=== PATIENT | male | born 1990 | race Caucasian/White ===

== ENCOUNTER 2022-03-01 10:05 | Emergency (ER) | payer OTHER ==
[2022-03-01] MEDS ORDERED: KETOROLAC 30 MG/ML INJ ONE ×2 (10:22→13:17)
[2022-03-01] MEDS ORDERED: ONDANSETRON 4 MG/2 ML VIAL ONE (10:22)
[2022-03-01] MEDS ORDERED: NA CHLORIDE 0.9% 1,000 ML ONE ×2 (10:22→11:24)
[2022-03-01 10:44] LABS: Absolute Lymphocytes (CBC) 1.2 K/uL (0.7-4.9); Hematocrit 47.3 % (39.6-49.0); Lymphocytes % 18.9 % (15.3-44.8); MCV 91.5 fL (80-100); MPV 9.3 fL (7.6-11.3); RBC Red Blood Cell Count 5.17 M/uL (4.33-5.43)
--- NOTE | 2022-03-01 10:52 | RAD REPORT ---
EXAM DESCRIPTION: CT - Stone Protocol - 03/01/2022 10:41 am CLINICAL HISTORY: Flank pain. flank pain COMPARISON: CT-STONE PROTOCOL dated 11/14/2010 TECHNIQUE: Axial images were obtained without oral or IV contrast. Lack of contrast limits solid org an and vascular assessment. The [id number] spans the entirety of the system partially obscuring uppermost abdomen and lung bases. Coronal reformatted images were obtained and reviewed. All CT scans are performed using dose optimization technique as appropriate and may include automated exposure control or mA/KV adjustment according to patient size. FINDINGS: The lower lung hicks are clear. Imaged portions of the liver and spleen show no suspicious findings on non-contrast imaging. The panc reas and adrenal glands are normal. No pathologic lymphadenopathy in the abdomen or pelvis. 2 mm stone is present mid right ureter resulting in mild right hydronephrosis. No left-sided stone or hydronephrosis seen. No bowel obstruction, free air, free fluid or abscess. Normal appendix noted. No significant bony abnormality. IMPRESSION: 2 mm stone is present mid right ureter resulting in mild right hydronephrosis.
[2022-03-01 11:05] LABS: Albumin 4.6 g/dL (3.4-5.0); Bilirubin Total 0.8 mg/dL (0.2-1.0); Potassium 4.2 mmol/L (3.5-5.1); Protein, Total 8.8 g/dL (6.4-8.2)
[2022-03-01] MEDS ORDERED: TAMSULOSIN 0.4 MG SR CAP ONE (11:24)
[2022-03-01 12:31] LABS: Blood Morphology Comment NOT SEEN (NOT SEEN); Platelet Estimate ADEQ; White Blood Cell Scan OK (OK)
[2022-03-01 12:32] LABS: Urine Blood 3+ (Negative); Urine Glucose Negative (Negative); Urine Protein Negative (Negative); Urine Specific Gravity 1.015 (1.005-1.030)
--- NOTE | 2022-03-01 13:37 | ER ---
Nurse's Notes [facility] Name: lBair Hernandez Age: 31 yrs Sex: Male : 1990 Arrival Date: 03/01/2022 Time: 10:06 Bed 11 Private MD: Diagnosis: Calculus of kidney with calculus of ureter Presentation: 03/01 10:12 Chief complaint: Patient states: Right flank pain since 0330 this morning, hx of kidney jl7 stones. Coronavirus screen: Vaccine status: Patient reports receiving the 2nd dose of the covid vaccine. At this time, the client does not indicate any symptoms associated with coronavirus-19. Ebola Screen: No symptoms or risks identified at this time. Initial Sepsis Screen: Does the patient meet any 2 criteria? No. Patient's initial sepsis screen is negative. Does the patient have a suspected source of infection? No. Patient's initial sepsis screen is negative. Risk Assessment: Do you want to hurt yourself or someone else? Patient reports no desire to harm self or others. Onset of symptoms was March 01, 2022 at 03:30. 10:12 Method Of Arrival: Law Enforcement: [place] [employer] jl7 10:12 Acuity: NATALIYA 3 jl7 Triage Assessment: 10:14 General: Appears in no apparent distress. uncomfortable, Behavior is cooperative, jl7 anxious. Pain: Complains of pain in right flank Pain currently is 9 out of 10 on a pain scale. Neuro: Level of Consciousness is awake, alert, obeys commands, Oriented to person, place, time, situation. Cardiovascular: Patient's skin is warm and dry. Respiratory: Airway is patent Respiratory effort is even, unlabored, Respiratory pattern is regular, symmetrical. : Reports pain in right flank(s). Derm: Skin is pink, warm \T\ dry. Historical: - Allergies: 10:14 No Known Allergies; jl7 - Home Meds: 10:14 ProAir HFA inhalation [Active]; jl7 - PMHx: 10:14 Asthma; kidney stones; jl7 - PSHx: 10:14 None; jl7 - Immunization history:: Client reports receiving the 2nd dose of the Covid vaccine. - Social history:: Smoking status: Patient denies any tobacco usage or history of. Screenin:34 [facility] ED Fall Risk Assessment (Adult) History of falling in the last 3 months, jl7 including since admission No falls in past 3 months (0 pts) Confusion or Disorientation No (0 pts) Intoxicated or Sedated No (0 pts) Impaired Gait No (0 pts) Mobility Assist Device Used No (0 pt) Altered Elimination No (0 pt) Score/Fall Risk Level 0 - 2 = Low Risk. Abuse screen: Denies threats or abuse. Denies injuries from another. Nutritional screening: No deficits noted. Tuberculosis screening: No symptoms or risk factors identified. Assessment: 12:21 General: Appears in no apparent distress. Behavior is cooperative. Pain: Complains of em6 pain in right lower quadrant and abdomen and back and right flank Pain currently is 5 out of 10 on a pain scale. Quality of pain is described as sharp. Neuro: Level of Consciousness is awake, alert, obeys commands, Oriented to person, place, time, situation. Cardiovascular: Patient's skin is warm and dry. Respiratory: Airway is patent Respiratory effort is even, unlabored, Respiratory pattern is regular, symmetrical. GI: Abdomen is non-distended, Bowel sounds present X 4 quads. Abd is soft and non tender X 4 quads. : No signs and/or symptoms were reported regarding the genitourinary system. EENT: No signs and/or symptoms were reported regarding the EENT system. Derm: No signs and/or symptoms reported regarding the dermatologic system. Musculoskeletal: Circulation, motion, and sensation intact. Range of motion: intact in all extremities. 13:20 Reassessment: notified provider of pain. new order given. Pain: Complains of pain in em6 right lower quadrant and abdomen and back and right flank Pain currently is 8 out of 10 on a pain scale. Quality of pain is described as sharp. Neuro: Level of Consciousness is awake, alert, obeys commands, Oriented to person, place, time, situation. Respiratory: Airway is patent Respiratory effort is even, unlabored, Respiratory pattern is regular, symmetrical. 13:47 Reassessment: waiting for fluids to finish to be discharge. em6 Vital Signs: 10:12 BP 96 / 76; Pulse 69; Resp 20; Temp 99.1; Pulse Ox 100% on R/A; Weight 77.11 kg; Height jl7 5 ft. 7 in. (170.18 cm); Pain 8/10; 12:21 BP 116 / 56; Pulse 68; Resp 18; Pulse Ox 100% on R/A; em6 13:20 BP 116 / 68; Pulse 64; Resp 18; Pulse Ox 100% on R/A; em6 10:12 Body Mass Index 26.63 (77.11 kg, 170.18 cm) jl7 ED Course: 10:06 Patient arrived in ED. em1 10:06 Dixon Crowe PA is PHCP. jmm 10:06 Rome Augustine MD is Attending Physician. jmm 10:12 Vno Rey RN is Primary Nurse. jl7 10:14 Triage completed. jl7 10:14 Arm band placed on right wrist. jl7 10:25 Initial lab(s) drawn, by me, sent to lab. Inserted saline lock: 20 gauge in right jl7 antecubital area, using aseptic technique. Blood collected. 10:34 Patient has correct armband on for positive identification. Pulse ox on. NIBP on. Warm jl7 blanket given. 10:43 CT Stone Protocol In Process Unspecified. EDMS 13:37 Zia Vasquez MD is Referral Physician. m 14:36 No provider procedures requiring assistance completed. IV discontinued, intact, em6 bleeding controlled, No redness/swelling at site. Pressure dressing applied. Administered Medications: 10:29 Drug: TORadol - (ketorolac) 15 mg Route: IVP; Site: right antecubital; jl7 11:50 Follow up: Response: No adverse reaction; Pain is decreased jl7 10:30 Drug: NS 0.9% 1000 ml Route: IV; Rate: 1 bolus; Site: right antecubital; jl7 11:45 Follow up: Response: No adverse reaction; IV Status: Completed infusion; IV Intake: jl7 1000ml 13:42 Follow up: Response: No adverse reaction; IV Status: Completed infusion; IV Intake: em6 1000ml 11:20 Drug: NS 0.9% 1000 ml Route: IV; Rate: 1 bolus; Site: right antecubital; jl7 14:37 Follow up: Response: No adverse reaction; IV Status: Completed infusion; IV Intake: em6 1000ml 11:50 Drug: Flomax (tamsulosin) 0.4 mg Route: PO; jl7 12:10 Follow up: Response: No adverse reaction jl7 12:10 Not Given (Patient Refused): Zofran (Ondansetron) 4 mg IVP once; over 2 minutes jl7 13:21 Drug: Ketorolac 15 mg Route: IVP; Site: right antecubital; em6 13:47 Follow up: Response: No adverse reaction em6 14:37 Follow up: Response: No adverse reaction em6 Medication: 10:34 VIS not applicable for this client. jl7 Intake: 11:45 IV: 1000ml; Total: 1000ml. jl7 13:42 IV: 1000ml; Total: 2000ml. em6 14:37 IV: 1000ml; Total: 3000ml. em6 Outcome: 13:37 Discharge ordered by MD. parul 14:36 Discharged to Law Enforcement em6 14:36 Condition: stable 14:36 Discharge instructions given to patient, police, Instructed on discharge instructions, follow up and referral plans. medication usage, Demonstrated understanding of instructions, follow-up care, medications, Prescriptions given X 1. 14:37 Patient left the ED. em6 Signatures: Dispatcher [employer] EDMS Dixon Crowe PA PA jmm Martinez, Eric em1 Von Rey RN RN jl7 María Alvarado RN RN em6 Corrections: (The following items were deleted from the chart) 10:15 10:14 Home Meds: None; jl7 jl7
--- NOTE | 2022-03-01 13:38 | EDPHYS ---
Physician Documentation [facility] Name: Blair Hernandez Age: 31 yrs Sex: Male : 1990 Arrival Date: 03/01/2022 Time: 10:06 Bed 11 Private MD: ED Physician Rome Augustine HPI: 03/01 10:08 This 31 yrs old Male presents to ER via [employer] Enforcement with complaints of Right Flank jmm pain. 10:08 The patient complains of pain in the right flank. The pain radiates to the abdomen. jmm Onset: The symptoms/episode began/occurred acutely, today. Modifying factors: The symptoms are alleviated by nothing. the symptoms are aggravated by nothing. Associated signs and symptoms: Pertinent positives: nausea. The patient has experienced similar episodes in the past. This is a 31 year old male with a history of asthma, previous kidney stones that presents to the ED with complaints of right flank pain, abdominal pain, nausea beginning earlier this morning around 0300. Symptoms are similar to previous episodes of kidney stones. . Historical: - Allergies: 10:14 No Known Allergies; jl7 - Home Meds: 10:14 ProAir HFA inhalation [Active]; jl7 - PMHx: 10:14 Asthma; kidney stones; jl7 - PSHx: 10:14 None; jl7 - Immunization history:: Client reports receiving the 2nd dose of the Covid vaccine. - Social history:: Smoking status: Patient denies any tobacco usage or history of. ROS: 10:08 Constitutional: Negative for fever, chills, and weight loss, Cardiovascular: Negative jmm for chest pain, palpitations, and edema, Respiratory: Negative for shortness of breath, cough, wheezing, and pleuritic chest pain. 10:08 Abdomen/GI: Positive for abdominal pain, nausea. 10:08 Back: Positive for flank pain, on the right. 10:08 All other systems are negative. Exam: 10:08 Constitutional: This is a well developed, well nourished patient who is awake, alert, jmm and in no acute distress. Head/Face: atraumatic. Eyes: EOMI, no conjunctival erythema appreciated ENT: Moist Mucus Membranes Neck: Trachea midline, Supple Chest/axilla: Normal chest wall appearance and motion. Cardiovascular: Regular rate and rhythm. No edema appreciated Respiratory: Normal respirations, no respiratory distress appreciated 10:08 Skin: General appearance color normal MS/ Extremity: Moves all extremities, no obvious deformities appreciated, no edema noted to the lower extremities Neuro: Awake and alert Psych: Behavior is normal, Mood is normal, Patient is cooperative and pleasant 10:08 Abdomen/GI: Inspection: abdomen appears normal, Bowel sounds: normal, Palpation: soft, moderate abdominal tenderness, in the right lower quadrant. 10:08 Back: CVA tenderness, that is moderate, is noted on the right. Vital Signs: 10:12 BP 96 / 76; Pulse 69; Resp 20; Temp 99.1; Pulse Ox 100% on R/A; Weight 77.11 kg; Height jl7 5 ft. 7 in. (170.18 cm); Pain 8/10; 12:21 BP 116 / 56; Pulse 68; Resp 18; Pulse Ox 100% on R/A; em6 13:20 BP 116 / 68; Pulse 64; Resp 18; Pulse Ox 100% on R/A; em6 10:12 Body Mass Index 26.63 (77.11 kg, 170.18 cm) 7 MDM: 10:08 Patient medically screened. [facility] 13:36 Data reviewed: vital signs, nurses notes. Counseling: I had a detailed discussion with parul the patient and/or guardian regarding: the historical points, exam findings, and any diagnostic results supporting the discharge/admit diagnosis, lab results, radiology results, the need for outpatient follow up, to return to the emergency department if symptoms worsen or persist or if there are any questions or concerns that arise at home. 03/01 10:11 Order name: CBC with Diff; Complete Time: 12:36 [facility] 03/01 10:11 Order name: CMP; Complete Time: 11:11 [facility] 03/01 10:11 Order name: Lipase; Complete Time: 11:11 [facility] 03/01 10:11 Order name: CT Stone Protocol; Complete Time: 10:59 [facility] 03/01 12:31 Order name: CBC Smear Scan; Complete Time: 12:36 [facility] 03/01 12:32 Order name: Urine Dipstick-Ancillary; Complete Time: 12:36 [facility] 03/01 10:11 Order name: IV Saline Lock; Complete Time: 10:33 [facility] 03/01 10:11 Order name: Labs collected and sent; Complete Time: 10:33 [facility] 03/01 10:27 Order name: Urine Dipstick-Ancillary (obtain specimen); Complete Time: 12:33 [facility] Administered Medications: 10:29 Drug: TORadol - (ketorolac) 15 mg Route: IVP; Site: right antecubital; jl7 11:50 Follow up: Response: No adverse reaction; Pain is decreased jl7 10:30 Drug: NS 0.9% 1000 ml Route: IV; Rate: 1 bolus; Site: right antecubital; jl7 11:45 Follow up: Response: No adverse reaction; IV Status: Completed infusion; IV Intake: jl7 1000ml 13:42 Follow up: Response: No adverse reaction; IV Status: Completed infusion; IV Intake: em6 1000ml 11:20 Drug: NS 0.9% 1000 ml Route: IV; Rate: 1 bolus; Site: right antecubital; jl7 14:37 Follow up: Response: No adverse reaction; IV Status: Completed infusion; IV Intake: em6 1000ml 11:50 Drug: Flomax (tamsulosin) 0.4 mg Route: PO; jl7 12:10 Follow up: Response: No adverse reaction jl7 12:10 Not Given (Patient Refused): Zofran (Ondansetron) 4 mg IVP once; over 2 minutes jl7 13:21 Drug: Ketorolac 15 mg Route: IVP; Site: right antecubital; em6 13:47 Follow up: Response: No adverse reaction em6 14:37 Follow up: Response: No adverse reaction em6 Disposition Summary: 03/01/22 13:37 Discharge Ordered Location: Home [facility] Condition: Stable [facility] Diagnosis - Calculus of kidney with calculus of ureter [facility] Followup: [facility] - With: Zia Vasquez MD - When: 2 - 3 days - Reason: Recheck today's complaints, Continuance of care, Re-evaluation by your physician Discharge Instructions: - Discharge Summary Sheet [facility] - Kidney Stones [facility] Forms: - Medication Reconciliation Form [facility] - Thank You Letter [facility] - Antibiotic Education [facility] - Prescription Opioid Use [facility] Prescriptions: - ondansetron 4 mg Oral - take 4 milligrams by SUBLINGUAL route every 8 hours; 15 tablet; Refills: 0, jmm Product Selection Permitted Signatures: Dispatcher [employer] EDMS Davide, MD MD john Peter Joel, PA PA jmm Leal, Jahala, RN RN jl7 María Alvarado RN RN em6 Corrections: (The following items were deleted from the chart) 10:15 10:14 [place] Meds: None; ted jl7
[2022-03-01 15:00] VITALS: TEMP 99.1; O2SAT 100
[2022-03-01 15:02] VITALS: BP 116/68
== END 2022-03-01 14:37 | disposition home or self-care (01) ==
LOC: ER 10:05
DX: N20.2 Calculus of kidney with calculus of ureter (principal); Z87.442 Personal history of urinary calculi
CPT/HCPCS: 85025; 36415; 81003; 83690; 80053; 76377; 74176; J2405; 96361; 96374; 99284; J7030